=== PATIENT | female | born 1990 | race Two or more races ===

== ENCOUNTER 2022-08-28 19:42 | Emergency (ER) | payer OTHER ==
[~2022-08-28] VITALS: Ht 160 cm; Wt 104.3 kg
[~2022-08-28 19:42] MED LIST: CLINDAMYCIN HC300 MG PO; IRON 100 PLUS1 EACH PO; OSEL75CA PO; PRENATABS FA T1 EACH PO
== END 2022-08-28 22:48 | disposition home or self-care (01) ==
LOC: ER 19:42
DX: B34.9 Viral infection, unspecified (principal); Z20.822 Contact with and (suspected) exposure to COVID-19

== ENCOUNTER 2023-07-21 08:12 | Emergency (ER) | payer OTHER ==
[~2023-07-21] VITALS: Ht 157.5 cm; Wt 99.8 kg
== END 2023-07-21 09:00 | disposition home or self-care (01) ==
LOC: ER 08:12
DX: H53.8 Other visual disturbances (principal)

== ENCOUNTER 2025-01-14 11:27 | Emergency (ER) | payer OTHER ==
[~2025-01-14] VITALS: Ht 152.4 cm; Wt 89.8 kg
[2025-01-14] MEDS ORDERED: KETOROLAC TROMETHAMINE 15 MG VIAL IM STA (15:07)
[2025-01-14] MEDS ORDERED: DEXAMETHASONE SODIUM PHOSPHATE 4 MG/ML VIAL IM STA (15:09)
[2025-01-14] MEDS ORDERED: DEXAMETHASONE SODIUM PHOSPHATE 4 MG/ML VIAL ONE (15:14)
[2025-01-14] MEDS ORDERED: KETOROLAC TROMETHAMINE 30 MG VIAL ONE (15:14)
[2025-01-14] MEDS ORDERED: IBU800 MG PO (18:24)
== END 2025-01-14 19:29 | disposition home or self-care (01) ==
LOC: ER 11:27
DX: S80.02XA Contusion of left knee, initial encounter (principal); W18.39XA Other fall on same level, initial encounter; Y93.89 Activity, other specified; Y92.89 Other specified places as the place of occurrence of the external cause; Y99.9 Unspecified external cause status

== ENCOUNTER 2025-03-16 12:47 | Emergency (ER) | payer OTHER ==
[~2025-03-16] VITALS: Ht 160 cm; Wt 94.3 kg
[~2025-03-16 12:47] MED LIST changes: +IBU800 MG PO
[2025-03-16 15:49] LABS: BASO % 0.2 % (0.1-1.2); EOS # 0.04 (0.04-0.54); EOS % 0.3 % (0.7-7.0); LYMPH # 1.33 (1.18-3.74); LYMPH % 11.3 % (19.3-53.1); MEAN CORPUSCULAR HEMOGLOBIN 17.7 pg (25.6-32.2); MONO # 0.99 (0.24-0.82); MONO % 8.4 % (4.7-12.5); NEUT # 9.31 (1.56-6.13); NEUT % 79.5 % (34.0-71.1); PLATELET COUNT 262 K/uL (163-369); RED BLOOD COUNT 5.03 M/uL (3.93-5.22); RED CELL DISTRIBUTION WIDTH 19.8 % (11.6-14.4)
[2025-03-16 16:01] LABS: HEMOGLOBIN 8.9 g/dL (11.2-15.7)
[2025-03-16 16:10] LABS: COVID-19 AG NEGATIVE (NEGATIVE); INFLUENZA A AG NEGATIVE (NEGATIVE); INFLUENZA B AG NEGATIVE (NEGATIVE)
[2025-03-16 16:14] LABS: ALBUMIN 3.5 gm/dL (3.4-5.0); BILIRUBIN TOTAL 0.36 mg/dL (0.3-1.2); CALCIUM 9.3 mg/dL (8.5-10.1); CREATININE SERUM 0.74 mg/dL (0.55-1.02); GFR 89.31; GLOBULINA 4.7 G/DL (2.4-3.5); POTASSIUM 3.98 mEq/L (3.5-5.1); TOTAL PROTEIN 8.2 gm/dL (6.4-8.2)
[2025-03-16] MEDS ORDERED: AMOX-CLAV 875-1 EACH PO (16:37)
== END 2025-03-16 17:49 | disposition home or self-care (01) ==
LOC: ER 12:47
PROVIDERS: General Practice
DX: J02.9 Acute pharyngitis, unspecified (principal); Z20.822 Contact with and (suspected) exposure to COVID-19